=== PATIENT | female | born 1955 | race American Indian/Alaskan Native ===

== ENCOUNTER 2020-01-08 10:59 | Emergency (ER) | payer MEDICARE ==
[2020-01-08 11:57] LABS: Basophils % (Auto) 0.7 % (0.0-1.8); Eosinophils % (Auto) 0.2 % (0.0-4.3); Hematocrit 36.5 % (30.3-42.9); Hemoglobin 12.6 gm/dl (10.1-14.3); Lymphocytes # (Auto) 1.1 K/mm3 (1.2-5.4); Lymphocytes % (Auto) 23.6 % (13.4-35.0); Mean Corpuscular HGB Conc 35 % (30-34); Mean Corpuscular Volume 90 fl (79-97); Monocytes # (Auto) 0.2 K/mm3 (0.0-0.8); Monocytes % (Auto) 5.1 % (0.0-7.3); Platelet Count 199 K/mm3 (140-440); Red Blood Count 4.04 M/mm3 (3.65-5.03); Red Cell Distribution Width 12.7 % (13.2-15.2)
[2020-01-08] MEDS: SODIUM CHLORIDE 0.9% 1000 ML 1,000 ML IV ONE (12:12)
[2020-01-08] MEDS: ONDANSETRON 4 MG/2 ML INJ IV STA (12:12)
[2020-01-08 12:21] LABS: Alanine Aminotransferase 12 units/L (7-56); Albumin 4.1 g/dL (3.9-5); BUN/Creatinine Ratio 19; Blood Urea Nitrogen 17 mg/dL (7-17); Calcium 9.8 mg/dL (8.4-10.2); Hemolysis Index 3
--- NOTE | 2020-01-08 14:16 | Cat Scan Report ---
CT head/brain wo con INDICATION: Lightheadedness/Dizziness. TECHNIQUE: Routine CT head without contrast. All CT scans at this location are performed using CT dos e reduction for ALARA by means of automated exposure control. COMPARISON: None. FINDINGS: BRAIN / INTRACRANIAL CONTENTS: No acute hemorrhage, mass effect, midline shift, or hydrocephalus. No appreciable acute large territorial or lacunar infarct. No chronic infarct or focal atrophy. Normal b rain volume and ventricular/sulcal size for age. ORBITS: No significant abnormality of visualized orbits. SINUSES / MASTOIDS: No significant abnormality of visualized sinuses and mastoid air cells. ADDITIONAL FINDINGS: None. IMPRESSION: 1. No acute intracranial abnormality. Signer Name: Bravo Jerry MD Signed: 01/08/2020 2:11 PM Workstation Name: [id number]
--- NOTE | 2020-01-08 15:32 | Cat Scan Report ---
CT ABDOMEN AND PELVIS WITH CONTRAST HISTORY: abd pain and vomiting COMPARISON: None. TECHNIQUE: Axial CT images were obtained through the abdomen and pelvis after 100 cc of Omnipaque 300 intravenously. Sagittal and coronal reformatted images. All CT scans at this location are performed using CT dose reduction for ALARA by means of automated exposure control. FINDINGS: CT ABDOMEN: Lung Bases: Clear. Liver: No significant abnormality. Biliary: No significant abnormality. Spleen: No significant abnormality. Unenlarged. Pancreas: No significant abnormality. Adrenals: No significant abnormality. Kidneys: No significant abnormality. Lymphatics: No lymphadenopathy. Vasculature: No significant abnormality. Bowel/Peritoneum: No significant abnormality. No free air. No free fluid. Normal appendix. CT PELVIS: : No significant abnormality. Osseous Structures: No significant abnormality. Additional Findings: None IMPRESSION: No acute process is identified in the abdomen or pelvis. Signer Name: Atilio Calles Jr, MD Signed: 01/08/2020 3:28 PM Workstation Name: [id number]
--- NOTE | 2020-01-08 16:03 | Emergency Department Report ---
ED General Adult HPI - General Chief complaint: Dizziness Stated complaint: N/V Time Seen by Provider: 01/08/20 11:04 Source: patient Mode of arrival: Stretcher Limitations: No Limitations - History of Present Illness Initial comments: 64-year-old [place] female presents emergency department complaining of of dizziness which is been off and on for the past day. States she feels that the room is spinning however symptoms are not associated with a headache, chest pain, shortness of breath, fever, chills, sweats she has been experiencing some nausea and vomiting as well and have some mild aches to the the general abdomen does appear to begin after the presyncope. She has no known history of vertigo. But has been more fatigued the past couple days as well. She reports no foreign travel or sick contacts no trauma. States her last bowel movement was about 2 to 2 days ago and she is visiting currently from [place] -: Gradual Location: abdomen Radiation: non-radiation Quality: aching Consistency: intermittent Improves with: none Worsens with: movement Associated Symptoms: malaise, nausea/vomiting. denies: confusion, chest pain, cough, diaphoresis, fever/chills, loss of appetite, rash, shortness of breath - Related Data Home Medications Medication Instructions Recorded Confirmed Last Taken Aspirin [Aspirin BABY CHEW TAB] 81 mg PO QDAY 11/10/13 11/10/13 11/09/13 09:00 Bupropion HCl [Wellbutrin Xl] 300 mg PO QDAY 11/10/13 11/10/13 11/09/13 09:00 Esomeprazole Magnesium [Nexium] 40 mg PO QDAY 11/10/13 11/10/13 11/09/13 09:00 Previous Rx's Medication Instructions Recorded Last Taken Type Hydrocodone Bit/Homatrop Me-Br 5 ml PO Q4H PRN #90 cc 11/10/13 Unknown Rx [Hydrocodone-Homatropine Syr 5-1.5 mg/5ml] Meclizine [Antivert] 25 mg PO TID PRN #20 tablet 01/08/20 Unknown Rx Ondansetron [Zofran ODT TAB] 8 mg PO Q8HR #20 tab.rapdis 01/08/20 Unknown Rx Allergies Allergy/AdvReac Type Severity Reaction Status Date / Time Penicillins Allergy Hives Verified 11/10/13 12:35 ED Review of Systems ROS: Stated complaint: N/V Other details as noted in HPI Comment: All other systems reviewed and negative ED Past Medical Hx - Past Medical History Hx GERD: Yes - Surgical History Past Surgical History?: No Additional Surgical History: tubal ligation - Social History Smoking Status: Never Smoker Substance Use Type: None - Medications Home Medications: Home Medications Medication Instructions Recorded Confirmed Last Taken Type Aspirin [Aspirin BABY CHEW TAB] 81 mg PO QDAY 11/10/13 11/10/13 11/09/13 09:00 History Bupropion HCl [Wellbutrin Xl] 300 mg PO QDAY 11/10/13 11/10/13 11/09/13 09:00 History Esomeprazole Magnesium [Nexium] 40 mg PO QDAY 11/10/13 11/10/13 11/09/13 09:00 History Hydrocodone Bit/Homatrop Me-Br 5 ml PO Q4H PRN #90 cc 11/10/13 Unknown Rx [Hydrocodone-Homatropine Syr 5-1.5 mg/5ml] Meclizine [Antivert] 25 mg PO TID PRN #20 tablet 01/08/20 Unknown Rx Ondansetron [Zofran ODT TAB] 8 mg PO Q8HR #20 tab.rapdis 01/08/20 Unknown Rx ED Physical Exam - General Limitations: No Limitations General appearance: alert, in no apparent distress - Head Head exam: Present: atraumatic, normocephalic - Eye Eye exam: Present: normal appearance, PERRL, EOMI, other. Absent: conjunctival injection (Negative funduscopic examination), nystagmus Pupils: Present: normal accommodation - ENT ENT exam: Present: normal exam, normal orophraynx, mucous membranes moist, TM's normal bilaterally - Neck Neck exam: Present: normal inspection, full ROM, other (No bruits no JVD). Absent: tenderness, meningismus, lymphadenopathy, thyromegaly - Respiratory Respiratory exam: Present: normal lung sounds bilaterally. Absent: respiratory distress, wheezes, rales, rhonchi, chest wall tenderness, accessory muscle use - Cardiovascular Cardiovascular Exam: Present: regular rate, normal rhythm. Absent: bradycardia, tachycardia, irregular rhythm, systolic murmur, diastolic murmur, rubs, gallop - GI/Abdominal GI/Abdominal exam: Present: soft, normal bowel sounds. Absent: distended, tenderness, guarding, rebound - Extremities Exam Extremities exam: Present: normal inspection, full ROM, normal capillary refill. Absent: tenderness, pedal edema - Back Exam Back exam: Present: normal inspection, full ROM. Absent: CVA tenderness (R), CVA tenderness (L) - Neurological Exam Neurological exam: Present: alert, oriented X3, CN II-XII intact, normal gait, motor sensory deficit, reflexes normal. Absent: abnormal gait - Psychiatric Psychiatric exam: Present: normal affect, normal mood. Absent: depressed, agitated, flat affect, manic, homicidal ideation - Skin Skin exam: Present: warm, dry, intact, normal color. Absent: rash ED Course Vital Signs 01/08/20 01/08/20 01/08/20 11:08 11:16 11:31 Temperature 97.7 F Pulse Rate 90 71 Respiratory 22 15 13 Rate Blood Pressure 143/80 127/83 Blood Pressure [Right] O2 Sat by Pulse 100 100 100 Oximetry 01/08/20 01/08/20 01/08/20 12:00 12:30 13:00 Temperature Pulse Rate 68 74 72 Respiratory 14 14 13 Rate Blood Pressure 129/57 122/68 132/68 Blood Pressure [Right] O2 Sat by Pulse 100 100 98 Oximetry 01/08/20 01/08/20 01/08/20 13:45 14:01 14:30 Temperature Pulse Rate 92 H 81 81 Respiratory 24 21 9 L Rate Blood Pressure 132/68 132/68 122/59 Blood Pressure [Right] O2 Sat by Pulse 100 100 Oximetry 01/08/20 01/08/20 01/08/20 15:00 16:35 16:41 Temperature 97.4 F L Pulse Rate 79 72 Respiratory 15 15 Rate Blood Pressure 117/66 149/67 Blood Pressure 149/67 [Right] O2 Sat by Pulse 95 99 100 Oximetry ED Medical Decision Making - Lab Data Result diagrams: 01/08/20 11:00 01/08/20 11:00 - Radiology Data Radiology results: report reviewed [facility] [address] [place] [address] Cat Scan Report Signed Patient: KATHI MAST MR#: [id number] : 1955 Acct:[id number] Age/Sex: 64 / F ADM Date: 01/08/20 Loc: ED Attending Dr: Ordering Physician: FRANCISCO ACKERMAN Date of Service: 01/08/20 Procedure(s): CT abdomen pelvis w con Accession Number(s): [id number] cc: FRANCISCO ACKERMAN CT ABDOMEN AND PELVIS WITH CONTRAST HISTORY: abd pain and vomiting COMPARISON: None. TECHNIQUE: Axial CT images were obtained through the abdomen and pelvis after 100 cc of Omnipaque 300 intravenously. Sagittal and coronal reformatted images. All CT scans at this location are performed using CT dose reduction for ALARA by means of automated exposure control. FINDINGS: CT ABDOMEN: Lung Bases: Clear. Liver: No significant abnormality. Biliary: No significant abnormality. Spleen: No significant abnormality. Unenlarged. Pancreas: No significant abnormality. Adrenals: No significant abnormality. Kidneys: No significant abnormality. Lymphatics: No lymphadenopathy. Vasculature: No significant abnormality. Bowel/Peritoneum: No significant abnormality. No free air. No free fluid. Normal appendix. CT PELVIS: : No significant abnormality. Osseous Structures: No significant abnormality. Additional Findings: None IMPRESSION: No acute process is identified in the abdomen or pelvis. Signer Name: Atilio Calles Jr, MD Signed: 01/08/2020 3:28 PM Workstation Name: [id number] Transcribed By: TTR Dictated By: ATILIO CALLES JR, MD Electronically Authenticated By: ATILIO CALLES JR, MD Signed Date/Time: 01/08/20 1528 DD/ 1524 TD/TT: [facility] [address] [place] [address] Cat Scan Report Signed Patient: KATHI MAST MR#: [id number] : 1955 Acct:[id number] Age/Sex: 64 / F ADM Date: 01/08/20 Loc: ED Attending Dr: Ordering Physician: FRANCISCO ACKERMAN Date of Service: 01/08/20 Procedure(s): CT head/brain wo con Accession Number(s): [id number] cc: FRANCISCO ACKERMAN CT head/brain wo con INDICATION: Lightheadedness/Dizziness. TECHNIQUE: Routine CT head without contrast. All CT scans at this location are performed using CT dose reduction for ALARA by means of automated exposure control. COMPARISON: None. FINDINGS: BRAIN / INTRACRANIAL CONTENTS: No acute hemorrhage, mass effect, midline shift, or hydrocephalus. No appreciable acute large territorial or lacunar infarct. No chronic infarct or focal atrophy. Normal brain volume and ventricular/sulcal size for age. ORBITS: No significant abnormality of visualized orbits. SINUSES / MASTOIDS: No significant abnormality of visualized sinuses and mastoid air cells. ADDITIONAL FINDINGS: None. IMPRESSION: 1. No acute intracranial abnormality. Signer Name: Bravo Jerry MD Signed: 01/08/2020 2:11 PM Workstation Name: [id number] Transcribed By: KAYLEE Dictated By: Bravo Jerry MD Electronically Authenticated By: Bravo Jerry MD Signed Date/Time: 01/08/201410 DD/ 10 TD/TT: - Medical Decision Making This patient presents with abdominal pain of unclear etiology. A CT scan was performed to evaluate for potential causes of the abdominal pain, however, neither the clinical exam nor the CT has identified an emergent etiology for the abdominal pain. Specifically, given the benign exam, the laboratory studies, an d unremarkable CT, I have a very low suspicion for appendicitis, ischemic bowel, bowel perforation, or any other life threatening disease. I have discussed with the patient the level of uncertainty with undifferentiated abdominal pain and clearly explained the need to follow-up as noted on the discharge instructions, or return to the Emergency Department immediately if the pain worsens, develops fever, persistent and uncontrollable vomiting, or for any new symptoms or concerns. This patient also presents emergency department complaining of dizziness which appears to be most consistent with a peripheral cause such as vertigo Koebel or related to some dehydration. Differential diagnosis includes benign positional vertigo/labyrinthitis/hydration/cardiovascular cause. There are no red flags for central vertigo to include gradual onset nystagmus, focal neurological findings on examination. That the presentation not consistent with an acute [employer] infection, but T0 basilar artery insufficiency or so cerebellar hemorrhage or infarction. There is no evidence of any intracranial mass or bleed, temporal lobe epilepsy/,, complex migraine headache history of multiple sclerosis. Other acute emergent causes of vertigo are unlikely at this given time. Her head CT was normal patient's condition significantly improve throughout her hospital stay she is alert and oriented and ambulating on her own power with with no complications she is very pleased with how she feels and is very thin in her very thankful for her symptom resolution. Critical care attestation.: If time is entered above; I have spent that time in minutes in the direct care of this critically ill patient, excluding procedure time. ED Disposition Clinical Impression: Vertigo, Nausea & vomiting Disposition: DC-01 TO HOME OR SELFCARE Is pt being admited?: No Does the pt Need Aspirin: No Condition: Stable Instructions: Acute Nausea and Vomiting (ED), Near Syncope (ED) Prescriptions: Meclizine [Antivert] 25 mg PO TID PRN #20 tablet PRN Reason: Vertigo Ondansetron [Zofran ODT TAB] 8 mg PO Q8HR #20 tab.tony Referrals: YOVANI GLASS [Other] - 3-5 Days
[2020-01-08 16:41] VITALS: BP 149/67
== END 2020-01-08 16:44 | disposition home or self-care (01) ==
LOC: ED 10:59
DX: R42 Dizziness and giddiness (principal); R11.2 Nausea with vomiting, unspecified; K21.9 Gastro-esophageal reflux disease without esophagitis; Z98.51 Tubal ligation status; Z79.899 Other long term (current) drug therapy
CPT/HCPCS: 36415; 70450; 74177; 80053; 83690; 84484; 85025; 96361; 96374; 99284; J2405; J7030; Q9967